=== PATIENT | female | born 1950 | race Caucasian/White ===

== ENCOUNTER 2019-11-10 09:21 | Outpatient (CLI) | payer MEDICARE ==
--- NOTE | 2019-11-10 11:07 | MRI ---
MR the lumbar spine without contrast: 11/10/2019 History: Lumbar radiculopathy COMPARISON: None. TECHNIQUE: Multiplanar multisequence MR images were obtained of lumbar spine without IV contrast FINDINGS: On the basis of 5 lumbar type vertebral bodies, conus medullaris terminates at theL1 level. Sagittal STIR imaging demonstrates no focal area of osseous marrow edema. T12-L1:Intervertebral disc height and signal intensity is within normal limits. Mild bilateral facet hypertrophy with no significant central canal or neural foraminal stenosis. L1-2:There is mild disc bulge and mild bilateral facet hypertrophy. No significant central canal or n eural foraminal stenosis. L2-3:There is disc space narrowing with disc desiccation, anterior osteophyte formation, and mild dis c bulge. Mild bilateral facet hypertrophy noted. Mild central canal stenosis. No significant neural foraminal stenosis. L3-4:There is disc space narrowing with disc desiccation and mild anterior osteophyte formation. Ther e is disc bulge present. There is bilateral facet hypertrophy. There is mild/moderate central canal stenosis with mild bilateral neural foraminal stenosis. L4-5:There is disc space narrowing with disc desiccation and mild disc bulge. Bilateral facet hypertr ophy and hypertrophy of the ligamentum flavum. Mild central canal stenosis. Mild bilateral neural foraminal stenosis. L5-S1:Mild bilateral facet hypertrophy. There is a small central disc protrusion with an associated a nnular tear. There is no significant central canal or neural foraminal stenosis. Image retroperitoneal structures demonstratemultiple T2 hyperintense renal lesions, left larger than right, statistically likely representing cysts. Of note, these lesions are not fully visualized/assessed on this examination. This includes a exophytic lesion emanating from the left kid grant measuring at least 4-5 cm. IMPRESSION: Multilevel degenerative change within the lumbar spine as described above. Incompletely imaged T2 hyperintense renal lesions. Renal ultrasound suggested.
--- NOTE | 2019-11-10 11:18 | RAD ---
Exam:Left hip 2 views HISTORY: Pain. COMPARISON: None FINDINGS: Mild loss of joint space height. Minimal sclerosis along the superior aspect of the acetabu lum. Contour of the femoral head is maintained. No fracture. Visualized bony pelvis is unremarkable. IMPRESSION: Mild loss of joint space height.
--- NOTE | 2019-11-10 11:18 | RAD ---
Exam: 3 views of lumbar spine HISTORY: Lumbar radiculopathy. Chronic low back pain. Left hip pain FINDINGS: Lateral neutral, lateral flexion and lateral extension views demonstrate 5 lumbar type vert ebra. Moderate to severe loss of disc space height at L2-L3, L3-L4, and L4-L5. In the neutral position, there is straightening of normal lumbar lordosis. No abnormal motion upon extension or flex ion. No significant loss of disc space height at L5-S1. IMPRESSION: 1. No fracture. 2. Moderate to severe degenerative disc disease at L2-L3, L3-L4 and L4-L5. Vacuum disc phenomenon is noted. 3. No significant spondylolisthesis. No evidence of spondylolysis.
== END 2019-11-10 09:22 | disposition home or self-care (01) ==
LOC: SCSMRI 09:21
PROVIDERS: ATTEND Neurological Surgery
DX: M25.552 Pain in left hip (principal); M47.26 Other spondylosis with radiculopathy, lumbar region; M51.16 Intervertebral disc disorders with radiculopathy, lumbar region; N28.9 Disorder of kidney and ureter, unspecified; M25.852 Other specified joint disorders, left hip
CPT/HCPCS: 72100; 72148